=== PATIENT | male | born 1990 | race Caucasian/White ===

== ENCOUNTER 2018-07-08 22:33 | Emergency (ER) | payer OTHER ==
[~2018-07-08] VITALS: Ht 167.6 cm; Wt 67.6 kg
[2018-07-09] MEDS ORDERED: LEVSIN/SL0.125 MG SL (04:09)
== END 2018-07-09 04:22 | disposition home or self-care (01) ==
LOC: ER 22:33
DX: K82.4 Cholesterolosis of gallbladder (principal); R10.13 Epigastric pain